=== PATIENT | male | born 1990 | race African-American/Black ===

== ENCOUNTER 2017-04-23 05:50 | Emergency (ER) | payer MEDICAID, OTHER ==
[~2017-04-23] VITALS: Ht 180.3 cm; Wt 108.9 kg
[~2017-04-23 05:50] MED LIST: CHERATUSSIN AC118 ML PO; NKM; PREDNISONE20 M1 PO
[2017-04-23] MEDS ORDERED: Albuterol/Ipratropium 3ml neb HHN ONE (06:15)
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
[2017-04-23 08:06] VITALS: BP 151/93
[2017-04-23] MEDS ORDERED: IBUPROFEN600 MG ORAL (08:17)
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
--- NOTE | 2017-04-23 08:28 | Diagnostic Imaging Report ---
Indication: Pain Technique: CT of the abdomen and pelvis utilizing automated exposure control without intravenous or oral contrast. CT dose: Total DLP 733.96 mGycm; CTDI vol 14.12 mGy Comparison: None Findings: Please note that evaluation of the abdominal and pelvic viscera is limited without the use of intravenous and oral contrast. Images through the lower lung/upper abdomen are also degraded due to patient motion Within these limitations, the following observations are made: There is a 5 mm nodule in the right lower lobe. There is mild dependent atelectasis. Heart size within normal limits. There is no pericardial effusion. Gallbladder is contracted. Likely related to a recent postprandial state. No definite pericholecystic inflammatory changes seen. Noncontrast evaluation of the liver, spleen, adrenal glands and pancreas is grossly unremarkable. Kidneys are symmetric in size. No evidence of urinary tract stone or hydronephrosis bilaterally. Bladder and prostate unremarkable. There is no free intraperitoneal air. There is no bowel obstruction. No appreciable perienteric inflammatory change or bowel wall thickening. Appendix is normal. No bulky/pathologically enlarged abdominal pelvic lymphadenopathy appreciated. Abdominal aorta is normal in caliber. There is very mild S-shaped scoliosis of the thoracolumbar spine. No acute osseous abnormality seen. IMPRESSION: Limited exam without intravenous or oral contrast. Exam also limited due to patient motion. Within these limitations, the following observations are made: Evidence of acute intra-abdominal pathology. No acute osseous abnormality seen. 5 mm lung nodule in the right lower lobe, nonspecific. Per 2017 Fleischner Society criteria recommendations, no routine imaging followup necessary if patient considered low risk for lung cancer. The CT scanner at [facility] is accredited by the [employer] and the scans are performed using protocols designed to limit radiation exposure to as low as reasonably achievable to attain images of sufficient resolution adequate for diagnostic evaluation.
[2017-04-23] MEDS ORDERED: ALBUTEROL SULF8.5 GM INH (08:29)
[2017-04-23] MEDS ORDERED: CYCLOBENZAPRINE10 MG ORAL (08:29)
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
[2017-04-23] MEDS ORDERED: ADULT WAL-TUSS118 ML ORAL (08:36)
[2017-04-23 08:37] VITALS: BP 147/93
== END 2017-04-23 08:37 | disposition home or self-care (01) ==
LOC: EMR 06:17
DX: S20.211A Contusion of right front wall of thorax, initial encounter (principal); M54.2 Cervicalgia; M54.5 Low back pain; V43.62XA Car passenger injured in collision with other type car in traffic accident, initial encounter; Y92.410 Unspecified street and highway as the place of occurrence of the external cause; J40 Bronchitis, not specified as acute or chronic; M41.85 Other forms of scoliosis, thoracolumbar region
CPT/HCPCS: 72125; 74176; 94640; 99284; J7620